=== PATIENT | female | born 1965 | race Two or more races ===

== ENCOUNTER 2019-02-10 17:28 | Emergency (ER) | payer OTHER ==
[~2019-02-10] VITALS: Ht 157.5 cm; Wt 59.0 kg
[2019-02-10] MEDS ORDERED: AROMASIN25 MG (17:33)
== END 2019-02-10 23:28 | disposition home or self-care (01) ==
LOC: ER 17:28
DX: K64.8 Other hemorrhoids (principal); R10.32 Left lower quadrant pain